=== PATIENT | male | born 1955 | race Caucasian/White ===

== ENCOUNTER 2019-06-05 14:22 | Inpatient (IN) | payer OTHER, SELFPAY ==
[2019-05-26 15:00] VITALS: BP 150/85; PULSE 67; RESP 18; TEMP 37.2; O2SAT 99; BMI 29.9
[2019-06-05] VITALS (15 sets, daily range): BP systolic 117–150; BP diastolic 68–92; PULSE 67–83; RESP 16–21; TEMP 36.4–36.7; O2SAT 95–100
--- NOTE | 2019-06-05 06:52 | WPDANESEPPF ---
Anes - Initial Pre Proc Eval Procedure: Operation Date: 06/05/19 07:30 Proposed Procedures p Laparoscopic Colostomy Takedown With Possible Splenic Flexure, Low Anterior Anastomosis - Abhilash Rodríguez MD Date/Time: 06/05/19 06:52 Surgeon: Abhilash Rodríguez MD Pre Op Diagnosis: Diverticulitis Unspecified Site W/O Perforation Patient Data Age: 63 Gender: M Height: 1.63 m Weight: 79.2 kg Last Vital Signs Temp 37.2 C 05/26/19 15:00 Pulse 67 05/26/19 15:00 Resp 18 05/26/19 15:00 BP 150/85 H 05/26/19 15:00 Pulse Ox 99 05/26/19 15:00 Allergies Allergy/AdvReac Type Severity Reaction Status Date / Time No Known Allergies Allergy Unknown Uncoded 05/28/19 08:43 Home Medications Medication Instructions Recorded Confirmed Type atenolol 100 mg PO DAILY 05/26/19 05/26/19 History hydrochlorothiazide 25 mg PO DAILY 05/26/19 05/26/19 History lisinopril 40 mg PO DAILY 05/26/19 05/26/19 History potassium chloride 20 mEq See Rx Instructions PO BID #20 05/29/19 Rx tablet,extended release tablet erythromycin 500 mg tablet 1 gm PO .1PM, 2PM, 11PM #6 tablet 06/04/19 Rx neomycin 500 mg tablet 1 gm PO .1pm, 2 pm, 11 pm #6 tablet 06/04/19 Rx Patient hx anesthesia problems: none Family hx anesthesia problems: none PMFSH Past Medical History Medical History (Updated 06/05/19 @ 06:53 by Jagdish Dumont DO) History of heart attack States silent in 2018 seen on EKG - had stress test after which was negative Hypertension Surgical History Surgical History (Updated 06/04/19 @ 08:04 by Jagdish Dumont DO) History of colectomy sigmoid colectomy with colostomy 02/2019 History of tonsillectomy Social History Social History Smoking status: Never smoker Gender identity (if verbalized by the patient): Male Anes - Eval Final PreProcedure Day of Procedure 06/05/19 06:52 Patient weight: obese Heart: regular rate and rhythm Lungs: clear to auscultation and normal air movement Airway: Mallampati scale class II Neurological: alert and oriented Last oral intake: >/= 8 hours ASA classification: III Emergent: no Anesthetic plan: proceed Anesthesia type and monitoring: general ETT and standard monitoring Informed Consent: The patient's anesthetic plan and its attendant risks and benefits were discussed with the patient/family/POA. Questions were solicited and answers provided to the satisfaction of the patient/family/POA.
[2019-06-05] MEDS: LACTATED RINGERS 1,000 ML 30 ML IV CONT ×2 (07:00→12:24)
[2019-06-05] MEDS: ALVIMOPAN 12 MG CAPSULE PO ×2 (07:15→21:38)
--- NOTE | 2019-06-05 07:21 | WPDHPUPDATE1 ---
History and Physical Update Update Date/Time: 06/05/19 07:21 History and Physical has been reviewed, including an updated exam of the patient. There are NO changes in the patient's condition. Risks, benefits, and alternatives of a takedown of his left sided colostomy have been discussed and questions answered. Patient agrees to proceed with procedure.
[2019-06-05] MEDS: ceFAZolin 2 GM/D5W 50 ML 2 GM/50 ML BAG IVPB (07:37)
[2019-06-05] MEDS: metroNIDAZOLE 500 MG/ISO 100ML 500 MG/100 ML BAG 100 MG IVPB ×3 (07:45→22:38)
[2019-06-05] MEDS: BUPIVACAINE/EPINEPHRINE 0.5% 30 ML VIAL INFILTRATE (08:29)
--- NOTE | 2019-06-05 12:34 | PM.PROC ---
Procedure Note - Detailed Date of procedure: 06/07/19 Pre-op diagnosis: Diverticulitis Unspecified Site W/O Perforation 1. History of Tori's procedure, current left-sided ostomy 2. History of perforated diverticulitis with abscess February 2019. Post-op diagnosis: same Procedure performed: 1. Laparoscopic takedown of left-sided colostomy 2. Anastomosis of the distal descending colon to rectum. Description of procedure: The patient was seen in the preop area and marked near his ostomy. Following this the patient was taken to the operating room and placed on the operating table supine. After induction of adequate general oral endotracheal anesthesia he was placed into the low Gil stirrups. A Aragon catheter was placed. An OG tube was placed. The ostomy bag was removed and using instruments that were not part of our later surgical count I carefully sutured his ostomy closed including a little bit of the skin at the edge above and below it, also catching themucosa and muscle wall of the stoma, with a running 2 0 silk suture. Prior to prepping a rectal irrigation was performed 1st using a 500cc bag of saline and then secondarily using a bag 500 cc of Saline mixed with Betadine. a Malenkott catheter was left in the rectum. Following this the abdomen was prepped and draped with chlorhexidine and the pelvic area with Betadine. . After a careful prep and drape exposing the entire abdomen we carefully started by making a vertical incision near the left and upper portion of the umbilicus about 2.5 cm in vertical length and carried this down through the subcutaneous tissues and incised the underlying midline fascia. With careful technique we placed 2 stay sutures in the fascia on either side of midline and used these to tent up the abdominal wall as I continued to dissect gently directly down and to the right side. When it appeared that we were within peritoneal cavity a Barragan cannula was carefully slid into position and before putting up the balloon we insufflated CO2 gas. On this 1st attempt pressures were too high and did not appear that we were in the abdomen, but rather in front of the anterior rectus sheath on this side just above umbilicus. Therefore, I went back removed the cannula, and incised the posterior rectus sheath and the peritoneum and slid the cannula into the peritoneal cavity, this time seen peritoneal lining and we then carefully insufflated the balloon on the cannula and then insufflated CO2 gas. The abdomen started to insufflate well to create a pneumoperitoneum and pressures were appropriate on the insufflation machine. I then carefully placed a 0 degree 10 mm scope through this opening and we could see into the abdomen in the right upper quadrant. There were some filmy adhesions but nothing terrible. A 5 mm trocar was then placed under direct vision in standard fashion after making a small incision about even with the umbilicus in the far lateral right side of the abdomen. Local anesthetic was instilled and then under direct vision a 5 mm port was placed. Following this we switched the laparoscope to a 5 mm 0 degree scope and the laparoscopic was placed through the 5 mm port. I then carefully inspected the underside of the site where we entered the abdomen at the level of the umbilicus and it appeared that there was no injury to surrounding structures. There were some adhesions on the left side of the port but none on the right. We then used this site to inspect underneath the midline incision site in the suprapubic region and it appeared this was also clear so local anesthetic was instilled in the old midline scar just above the pubic bone and a vertical incision about 5 mm in size was placed and then a 5 mm port was also placed in the suprapubic midline. This was done under direct vision with laparoscope. Following this we used these two 5 mm ports and moving the laparoscope back and forth between them, dissected down all the filmy a
[2019-06-05] MEDS: LACTATED RINGERS 1,000 ML 100 ML IV CONT (16:04)
[2019-06-05] MEDS: GABAPENTIN 300 MG CAPSULE 600 MG PO (16:07)
--- NOTE | 2019-06-05 20:38 | PC.NURSE ---
Patient arrived from our floor @1450 today from PACU.
[2019-06-05] MEDS: FAMOTIDINE 20 MG/2 ML VIAL IV PUSH (21:38)
[2019-06-06] VITALS (8 sets, daily range): BP systolic 145–167; BP diastolic 78–102; PULSE 71–94; RESP 16–20; TEMP 36.3–37.1; O2SAT 94–98
[2019-06-06] MEDS: LACTATED RINGERS 1,000 ML 100 ML IV CONT (01:38)
[2019-06-06 06:10] LABS: Basophils Percent Auto 0.1 % (0.2-1.2); Hematocrit 41.1 % (42.0-52.0); Hemoglobin 13.6 g/dL (14.0-18.0); Immature Granulocyte Absolute 0.05 K/mm3 (0.00-0.031); Immature Granulocyte Percent A 0.4 % (0-0.5); Lymphocytes Absolute Auto 0.81 K/mm3 (0.9-3.2); Lymphocytes Percent Auto 6.4 % (18.3-44.2); Mean Corpuscular HGB Conc 33.1 g/dl (32-36); Mean Corpuscular Hemoglobin 28.3 pg (26-34); Mean Corpuscular Volume 85.6 fl (80-100); Mean Platelet Volume 10.1 fl (7.4-10.4); Monocytes Absolute Auto 0.8 K/mm3 (0.1-0.6); Monocytes Percent Auto 6.2 % (2.6-8.5); Neutrophils Absolute Auto 10.9 K/mm3 (1.3-6.7); Neutrophils Percent Auto 86.9 % (45.5-73.1); Platelet Count Result 277 k/mm3 (150-375); White Blood Count 12.6 K/mm3 (4.5-10.0)
[2019-06-06 06:27] LABS: Alanine Aminotransferase 15 U/L (4-50); Albumin Level 3.6 g/dL (3.5-5.1); Alkaline Phosphatase 73 U/L (38-126); Aspartate Amino Transferase 21 U/L (17-59); Bilirubin,Total 1.1 mg/dL (0.2-1.3); Blood Urea Nitrogen 20 mg/dL (9-20); Calcium 8.5 mg/dL (8.4-10.2); Carbon Dioxide 26 mmol/L (22-30); Chloride 103 mmol/L (98-107); Estimated CRCL calculation 55 ml/min; Estimated Glomerular Filt Rate > 60; Glucose 117 mg/dL (75-110); Potassium 3.9 mmol/L (3.4-5.0); Sodium 137 mmol/L (137-145)
[2019-06-06] MEDS: metroNIDAZOLE 500 MG/ISO 100ML 500 MG/100 ML BAG 100 MG IVPB ×3 (06:41→21:45)
[2019-06-06] MEDS: atenoloL 50 MG TABLET 100 MG PO (09:49)
[2019-06-06] MEDS: lisinopriL 20 MG TABLET 40 MG PO (09:49)
[2019-06-06] MEDS: ENOXAPARIN 40 MG/0.4 ML SYRINGE SUB-Q (09:50)
[2019-06-06] MEDS: ALVIMOPAN 12 MG CAPSULE PO ×2 (09:50→21:45)
[2019-06-06] MEDS: FAMOTIDINE 20 MG/2 ML VIAL IV PUSH (09:50)
--- NOTE | 2019-06-06 12:14 | PM.PNGS ---
Progress Note: A&P Assessment and Plan (1) Colostomy status: Onset Date: ~02/2019 Code(s): Z93.3 - Colostomy status Status: Acute Assessment and Plan: Doing well postop day 1 with positive flatus Advance diet to clear liquids for now and give nurses capability to advance to full liquids if patient has a bowel movement. Patient will begin walking further in the hallway. May be ready for discharge later this weekend. (2) Diverticulitis: Onset Date: ~02/2019 Code(s): K57.92 - Diverticulitis of intestine, part unspecified, without perforation or abscess without bleeding Status: Acute Additional Plan Patient tolerating fluids well. Will saline lock IV after this bag. Subjective Subjective Date/Time Seen: 06/06/19 12:14 Post Op day: 1 Patient reports: no new complaints, flatus and no bowel movement Interval history: Patient up walking, feeling well, tolerating liquids. Patient states he had had a bowel movement yet but has passed gas several times. Review of Systems Constitutional: Constitutional: Reports no additional constitutional complaints ENT: Reports other (Mucous Membranes moist.) Cardiovascular: Cardiovascular: Denies dyspnea Respiratory: Respiratory: Denies pain on inspiration and Denies dyspnea Musculoskeletal: Musculoskeletal: Reports other (No calf swelling or edema) Integumentary/Breasts: Skin/Breast: Reports system reviewed and no additional complaints, except as docu Exam Const: General: cooperative, no acute distress, alert and awake Orientation/consciousness: patient oriented x3 HENMT: Mouth: Yes moist mucous membranes Neck: Neck: normal visual inspection Chest: Chest palpation & inspection: normal inspection of the chest Resp: Effort & Inspection: normal respiratory effort Auscultation: clear to auscultation bilaterally Cardio: Jugular venous distension: no JVD Rate: regular rate Rhythm: regular rhythm GI: Auscultation: normal bowel sounds Rectal Exam: deferred Skin: Other: Incision at old ostomy site has 4 x 4 and Tegaderm on it with no drainage but was changed at 6:30 a.m. this morning. All laparoscopic sites clean with surgical glue and healing well apparently had mild serosanguineous drainage then. VARUN drain site with minimal drainage covered with a 4 x 4 and Tegaderm. Neuro: General: patient oriented x3 and moves all extremities Speech: normal speech Extrem: General: normal exam except as noted Psych: Mental Status: mental status grossly normal Speech and movement: Normal speech and movement present Affect: normal affect Thought content: Yes Normal thought content present Objective Data Vital Signs Vital Signs: Vital Signs - 24 hr 06/05/19 12:24 06/05/19 12:30 06/05/19 12:45 Temperature 36.7 C Pulse Rate 75 71 75 Respiratory Rate 18 20 20 Blood Pressure 127/70 119/68 123/73 Pulse Oximetry 100 100 100 06/05/19 13:00 06/05/19 13:15 06/05/19 13:30 Temperature Pulse Rate 72 67 82 Respiratory Rate 21 H 19 17 Blood Pressure 128/79 125/76 117/84 Pulse Oximetry 100 97 96 06/05/19 13:45 06/05/19 14:00 06/05/19 14:15 Temperature Pulse Rate 74 74 82 Respiratory Rate 19 19 17 Blood Pressure 132/85 132/88 134/91 H Pulse Oximetry 95 95 97 06/05/19 14:25 06/05/19 14:40 06/05/19 15:10 Temperature 36.6 C 36.4 C 36.4 C L Pulse Rate 80 77 74 Respiratory Rate 16 16 16 Blood Pressure 136/81 136/81 132/83 Pulse Oximetry 96 96 96 06/05/19 16:10 06/05/19 22:00 06/06/19 02:00 Temperature 36.5 C 36.6 C 37.1 C Pulse Rate 80 83 88 Respiratory Rate 16 16 16 Blood Pressure 150/86 H 139/88 145/89 H Pulse Oximetry 96 96 96 06/06/19 06:00 06/06/19 09:49 06/06/19 11:02 Temperature 36.7 C 36.3 C L Pulse Rate 90 90 94 Respiratory Rate 18 18 Blood Pressure 166/98 H 162/95 H Pulse Oximetry 97 98 Intake/Output Intake/Output: Intake & Output 06/03/19 06/04/19 06/05/19 06/06/19 23:59 23:59 23:59 23:59 In
[2019-06-06] MEDS: hydrALAZINE HCL 20 MG/ML VIAL 10 MG IV PUSH (15:36)
[2019-06-06] MEDS: hydroCHLOROthiazide 25 MG TABLET PO (17:33)
[2019-06-07] MEDS: metroNIDAZOLE 500 MG/ISO 100ML 500 MG/100 ML BAG 100 MG IVPB ×2 (06:43→21:05)
[2019-06-07 06:46] VITALS: BP 161/91; PULSE 73; RESP 16; TEMP 36.4; O2SAT 97
[2019-06-07 06:53] LABS: Blood Urea Nitrogen 17 mg/dL (9-20); Calcium 8.7 mg/dL (8.4-10.2); Carbon Dioxide 28 mmol/L (22-30); Chloride 99 mmol/L (98-107); Estimated CRCL calculation 54 ml/min; Estimated Glomerular Filt Rate > 60; Glucose 100 mg/dL (75-110); Potassium 3.5 mmol/L (3.4-5.0); Sodium 135 mmol/L (137-145)
[2019-06-07 08:00] VITALS: PULSE 73; RESP 16; O2SAT 97
[2019-06-07] MEDS: lisinopriL 20 MG TABLET 40 MG PO (08:07)
[2019-06-07] MEDS: ENOXAPARIN 40 MG/0.4 ML SYRINGE SUB-Q (08:07)
[2019-06-07] MEDS: ALVIMOPAN 12 MG CAPSULE PO ×2 (08:08→21:05)
[2019-06-07] MEDS: atenoloL 50 MG TABLET 100 MG PO (08:08)
--- NOTE | 2019-06-07 13:34 | PM.PNGS ---
Progress Note: A&P Assessment and Plan (1) Colostomy status: Onset Date: ~02/2019 Code(s): Z93.3 - Colostomy status Status: Acute Assessment and Plan: tolerating full liquid diet. Will advance to soft diet. VARUN drain out today. Possibly home tomorrow. Subjective Subjective Date/Time Seen: 06/07/19 13:34 Patient reports: feels better, pain is less, tolerating liquids well, flatus, bowel movement and afebrile Interval history: Patient has had a bowel movement. Eager to be able to try solid diet. No other complaints period Exam GI: Inspection: non-distended and incision ( clean, dry, intact) GI Palp: Yes Tenderness to palpation present (GI) ( incisional) Percussion: Yes normal to percussion Auscultation: normal bowel sounds Objective Data Vital Signs Vital Signs: Vital Signs - 24 hr 06/06/19 14:00 06/06/19 15:57 06/06/19 17:13 Temperature 36.4 C Pulse Rate 71 Respiratory Rate 18 Blood Pressure 167/102 H 165/78 H Pulse Oximetry 94 94 06/06/19 22:00 06/07/19 06:46 06/07/19 08:00 Temperature 36.7 C 36.4 C Pulse Rate 81 73 73 Respiratory Rate 20 16 16 Blood Pressure 146/92 H 161/91 H Pulse Oximetry 95 97 97 Intake/Output Intake/Output: Intake & Output 06/04/19 06/05/19 06/06/19 06/07/19 23:59 23:59 23:59 23:59 Intake Total 1930 3710 1060 Output Total 380 3075 3000 Balance 1550 245 -1940 Meds/Results Medications: Active Medications Generic Name Dose Route Start Last Admin Trade Name Freq PRN Reason Stop Dose Admin Acetaminophen 500 mg 06/05/19 14:22 Tylenol Tablet PO Q6H PRN Mild Pain (1-3) or Fever Hydrocodone Bitart/Acetaminophen 1 tab 06/05/19 14:22 [place] 5-325 Mg PO Q6H PRN Pain Rated 4-6 Hydrocodone Bitart/Acetaminophen 1 tab 06/05/19 14:22 06/06/19 01:33 [place] 7.5-325 Mg PO 1 tab Q6H PRN Administration Pain Rated 7-10 Alvimopan 12 mg 06/05/19 21:00 06/07/19 08:08 Entereg PO 06/12/19 21:01 12 mg Q12HR HUNTER Administration Atenolol 100 mg 06/06/19 09:00 06/07/19 08:08 Tenormin PO 100 mg DAILY HUNTER Administration Enoxaparin Sodium 40 mg 06/06/19 09:00 06/07/19 08:07 Lovenox SUB-Q 40 mg DAILY HUNTER Administration Hydrochlorothiazide 25 mg 06/06/19 18:00 06/06/19 17:33 Hydrochlorothiazide PO 25 mg QPM HUNTER Administration Metronidazole 500 mg in 100 mls @ 100 mls/hr 06/05/19 16:00 06/07/19 06:43 Flagyl 500 Mg/Iso Soln 100 Ml IVPB 100 mls/hr Q8HR HUNTER Administration Lisinopril 40 mg 06/06/19 09:00 06/07/19 08:07 Prinivil PO 40 mg DAILY HUNTER Administration Morphine Sulfate 2 mg 06/05/19 14:22 Morphine Sulfate Inj IV PUSH Q2H PRN Pain Rated 4-6 Morphine Sulfate 4 mg 06/05/19 14:22 Morphine Sulfate Inj IV PUSH Q2H PRN Pain Rated 7-10 Naloxone HCl 0.1 mg 06/05/19 14:22 Narcan IV PUSH Q2M PRN Opiate Reversal Ondansetron HCl 4 mg 06/05/19 14:22 Zofran Inj IV PUSH Q4H PRN Nausea And Vomiting Labs Labs: Laboratory Results - last 24 hr 06/07/19 06:11 Sodium 135 L Potassium 3.5 Chloride 99 Carbon Dioxide 28 BUN 17 Creatinine 1.20 Estim Creat Clear Calc 54 Estimated GFR > 60 Glucose 100 Calcium 8.7
[2019-06-07 14:00] VITALS: BP 156/98; PULSE 57; RESP 20; TEMP 36.5; O2SAT 97
[2019-06-07] MEDS: hydroCHLOROthiazide 25 MG TABLET PO (18:00)
[2019-06-07 21:44] VITALS: BP 164/94; PULSE 60; RESP 16; TEMP 37.1; O2SAT 97
[2019-06-08 05:38] VITALS: BP 180/98
[2019-06-08 06:00] VITALS: BP 181/99; PULSE 54; RESP 18; TEMP 36.6; O2SAT 96
[2019-06-08 06:16] LABS: Hematocrit 44.8 % (42.0-52.0); Hemoglobin 14.8 g/dL (14.0-18.0); Mean Corpuscular Hemoglobin 28.5 pg (26-34); Mean Corpuscular Volume 86.3 fl (80-100); Mean Platelet Volume 9.7 fl (7.4-10.4); Platelet Count Result 267 k/mm3 (150-375); Red Blood Count 5.19 M/mm3 (4.6-6.20); Red Cell Distribution Width 12.9 % (11.5-14.5); White Blood Count 10.8 K/mm3 (4.5-10.0)
[2019-06-08] MEDS: hydrALAZINE HCL 20 MG/ML VIAL 10 MG IV PUSH (06:29)
[2019-06-08] MEDS: metroNIDAZOLE 500 MG/ISO 100ML 500 MG/100 ML BAG 100 MG IVPB ×3 (06:29→21:12)
[2019-06-08 06:39] LABS: Blood Urea Nitrogen 17 mg/dL (9-20); Calcium 8.7 mg/dL (8.4-10.2); Carbon Dioxide 28 mmol/L (22-30); Chloride 97 mmol/L (98-107); Estimated CRCL calculation 53 ml/min; Estimated Glomerular Filt Rate > 60; Glucose 108 mg/dL (75-110); Potassium 3.3 mmol/L (3.4-5.0); Sodium 135 mmol/L (137-145)
[2019-06-08 08:00] VITALS: PULSE 54; RESP 18; O2SAT 96
[2019-06-08] MEDS: lisinopriL 20 MG TABLET 40 MG PO (09:44)
[2019-06-08] MEDS: ENOXAPARIN 40 MG/0.4 ML SYRINGE SUB-Q (09:45)
[2019-06-08] MEDS: atenoloL 50 MG TABLET 100 MG PO (09:45)
[2019-06-08] MEDS: ALVIMOPAN 12 MG CAPSULE PO ×2 (09:46→21:12)
--- NOTE | 2019-06-08 13:00 | ECG_ITS ---
Measurements Intervals [place] Rate: 66 P: 29 [place]: 146 QRS: 7 QRSD: 95 T: -45 QT: 408 QTc: 430 Interpretive Statements SINUS RHYTHM POSSIBLE LEFT ATRIAL ENLARGEMENT DELAYED PRECORDIAL R/S TRANSITION POSSIBLE LEFT VENTRICULAR HYPERTROPHY CONSIDER INFERIOR INFARCT, AGE INDETERMINATE BORDERLINE T WAVE ABNORMALITY- LATERAL LEADS ABNORMAL ECG Electronically Signed On 06-08-2019 13:36:47 TECHNICIAN ASSISTANT by Brian Llamas D.O.
--- NOTE | 2019-06-08 13:02 | PM.PNGS ---
Progress Note: A&P Assessment and Plan (1) Colostomy status: Onset Date: ~02/2019 Code(s): Z93.3 - Colostomy status Status: Acute Assessment and Plan: Patient doing well surgically. Tolerating a soft diet. Continue daily dressing changes. (2) Anxiety: Code(s): F41.9 - Anxiety disorder, unspecified Status: Acute Assessment and Plan: Patient has not tried any prior medications in the past. Will give patient Xanax as needed here in the hospital. Will likely keep patient overnight 1 more day due to high blood pressure and anxiety. (3) Chest pressure: Code(s): R07.89 - Other chest pain Status: Acute Assessment and Plan: Check EKG today to ensure there is no cardiac cause for his symptoms (4) Hypertension: Code(s): I10 - Essential (primary) hypertension Status: Acute Assessment and Plan: Blood pressure has been higher than normal, and patient is back on all of his home meds. Added hydralazine p.r.n. systolic blood pressure greater than 160 Subjective Subjective Date/Time Seen: 06/08/19 13:02 Pain controlled. Tolerating soft diet. Patient has been experiencing chest pressure and anxiety. He does not think this is related to his heart and thinks it is most likely anxiety. He states that he has been depressed for the last couple months. He has some concerns about going home today with how he is currently feeling. Exam GI: Inspection: non-distended and incision (Dry and intact.) GI Palp: Yes Soft to palpation and Yes Tenderness to palpation present (GI) (Incisional) Percussion: Yes normal to percussion Auscultation: normal bowel sounds Objective Data Vital Signs Vital Signs: Vital Signs - 24 hr 06/07/19 14:00 06/07/19 21:44 06/08/19 05:38 Temperature 36.5 C 37.1 C Pulse Rate 57 L 60 Respiratory Rate 20 16 Blood Pressure 156/98 H 164/94 H 180/98 H Pulse Oximetry 97 97 06/08/19 06:00 Temperature 36.6 C Pulse Rate 54 L Respiratory Rate 18 Blood Pressure 181/99 H Pulse Oximetry 96 Intake/Output Intake/Output: Intake & Output 06/05/19 06/06/19 06/07/19 06/08/19 23:59 23:59 23:59 23:59 Intake Total 1930 3710 2900 740 Output Total 901 1866 7826 550 Balance 1554 798 -0080 190 Meds/Results Medications: Active Medications Generic Name Dose Route Start Last Admin Trade Name Freq PRN Reason Stop Dose Admin Acetaminophen 500 mg 06/05/19 14:22 Tylenol Tablet PO Q6H PRN Mild Pain (1-3) or Fever Hydrocodone Bitart/Acetaminophen 1 tab 06/05/19 14:22 [place] 5-325 Mg PO Q6H PRN Pain Rated 4-6 Hydrocodone Bitart/Acetaminophen 1 tab 06/05/19 14:22 06/07/19 22:26 [place] 7.5-325 Mg PO 1 tab Q6H PRN Administration Pain Rated 7-10 Alprazolam 0.25 mg 06/08/19 13:00 Xanax PO TID PRN Anxiety Alvimopan 12 mg 06/05/19 21:00 06/08/19 09:46 Entereg PO 06/12/19 21:01 12 mg Q12HR HUNTER Administration Atenolol 100 mg 06/06/19 09:00 06/08/19 09:45 Tenormin PO 100 mg DAILY HUNTER Administration Enoxaparin Sodium 40 mg 06/06/19 09:00 06/08/19 09:45 Lovenox SUB-Q 40 mg DAILY HUNTER Administration Hydralazine HCl 10 mg 06/08/19 05:54 06/08/19 06:29 Apresoline Hcl Inj IV PUSH 10 mg Q6H PRN Administration Blood Pressure >160 Hydrochlorothiazide 25 mg 06/06/19 18:00 06/07/19 18:00 Hydrochlorothiazide PO 25 mg QPM HUNTER Administration Metronidazole 500 mg in 100 mls @ 100 mls/hr 06/05/19 16:00 06/08/19 07:53 Flagyl 500 Mg/Iso Soln 100 Ml IVPB Infused Q8HR HUNTER Infusion Lisinopril 40 mg 06/06/19 09:00 06/08/19 09:44 Prinivil PO 40 mg DAILY HUNTER Administration Morphine Sulfate 2 mg 06/05/19 14:22 Morphine Sulfate Inj IV PUSH Q2H PRN Pain Rated 4-6 Morphine Sulfate 4 mg 06/05/19 14:22 Morphine Sulfate Inj IV PUSH Q2H PRN Pain Rated 7-10 Naloxone HCl 0.1 mg
[2019-06-08 14:00] VITALS: BP 159/100; PULSE 66; RESP 18; TEMP 36.6; O2SAT 98
[2019-06-08] MEDS: hydroCHLOROthiazide 25 MG TABLET PO (17:30)
[2019-06-08] MEDS: ALPRAZOLAM 0.25 MG TABLET PO (18:56)
[2019-06-08 21:24] VITALS: BP 158/94; PULSE 72; RESP 18; TEMP 36.9; O2SAT 97
[2019-06-09] MEDS: metroNIDAZOLE 500 MG/ISO 100ML 500 MG/100 ML BAG 100 MG IVPB (05:05)
[2019-06-09 05:23] VITALS: BP 152/94; PULSE 65; RESP 16; TEMP 37.1; O2SAT 95
[2019-06-09 09:10] VITALS: PULSE 80
[2019-06-09] MEDS: atenoloL 50 MG TABLET 100 MG PO (09:10)
[2019-06-09] MEDS: lisinopriL 20 MG TABLET 40 MG PO (09:10)
[2019-06-09] MEDS: ENOXAPARIN 40 MG/0.4 ML SYRINGE SUB-Q (09:10)
[2019-06-09] MEDS: ALVIMOPAN 12 MG CAPSULE PO (09:10)
[2019-06-09 12:54] VITALS: BP 150/99
[2019-06-09 14:00] VITALS: BP 149/98; PULSE 62; RESP 20; TEMP 36.7; O2SAT 100
--- NOTE | 2019-06-09 15:19 | PM.DS ---
DS: Diagnosis Admitting Diagnosis Admitting Diagnosis: Essential (primary) hypertension Discharge Diagnosis (1) Status post colostomy takedown: Code(s): Z98.890 - Other specified postprocedural states Status: Acute (2) Hypertension: Code(s): I10 - Essential (primary) hypertension Status: Acute (3) Diverticulitis: Onset Date: ~02/2019 Code(s): K57.92 - Diverticulitis of intestine, part unspecified, without perforation or abscess without bleeding Status: Acute Assessment and Plan: History of perforated sigmoid diverticulitis with abscess with hospitalization on 02/09/19 and eventual surgery on 02/11/19. (4) Anxiety: Code(s): F41.9 - Anxiety disorder, unspecified Status: Acute (5) Hypokalemia: Code(s): E87.6 - Hypokalemia Status: Acute DS: Summary Hospital Course Reason for hospitalization: Man York is a 63-year-old male who initially was seen by our service on 02/09/19 when he was admitted to [facility] for perforated sigmoid diverticulitis. The patient was initially treated with IV antibiotics. He developed a peridiverticular abscess and did not progress as expected. He eventually had a sigmoid colectomy with end descending colostomy (Tori's procedure) on 02/11/[address] Rodríguez. Following this surgery, he recovered well, completed antibiotic treatment, and was discharged home. He was followed as an outpatient by Dr. Rodríguez and options were discussed about proceeding with a takedown of his colostomy. They had agreed to proceed with elective surgery and he was scheduled for this on 06/05/19 and he was admitted following surgery for monitoring and post-op management. Hospital Course: The patient underwent elective laparoscopic takedown of left-sided colostomy with anastomosis of the distal descending colon to rectum on 06/05/[address] Rodríguez. No immediate complications and the patient was transferred to the medical unit once recovered in PACU. The patient was slowly advanced on a diet and tolerated this well. He has been advanced to a soft diet and his bowel function has returned. He was restarted on his home medications once he was tolerating a diet. He has a known history of essential hypertension but did experience some post-operative hypertension even on his home medications. This could be related to multiple factors, including the hospital environment, anxiety, and pain. The patient's pain has improved and he is now tolerating his pain with only Tylenol as needed. We added PRN IV Hydralazine while inpatient and he did receive this. He is already on lisinopril 40 mg daily, HCTZ 25 mg daily, and atenolol 100 mg daily. His blood pressure has improved as of today and he has not required any IV Hydralazine since yesterday morning. That being said, his blood pressure is still on the high side and he was encouraged to follow-up with his PCP this week to re-evaluate his medications and for a blood pressure check. He does also report having a social change with a relationship that is having significant troubles and this is what has been causing his anxiety. He denies a history of anxiety or ever taking medications in the past. He was treated with Xanax 0.25 mg by mouth TID as needed while in the hospital. Yesterday when he was experiencing anxiety, he also had an episode of chest pain. EKG was obtained and had no acute changes. After his anxiety was treated, his chest pain subsided. This was likely due to the anxiety. Today, he denies any chest pain, chest pressure, shortness of breath, or dizziness. Today's labs revealed mild hypokalemia with a potassium of 3.3. He was instructed to start taking his potassium supplement which he has at home once daily, starting today. BMP was ordered to be done one day prior to follow-up with his PCP once he has that appointment scheduled. Further instructions for the hypokalemia and need for potassium supplementation will be deferred to his PCP once h
== END 2019-06-09 14:40 | disposition home or self-care (01) | DRG 331 ==
LOC: ANH3MEDSUR 14:42
PROVIDERS: Surgery; Admitting Provider Surgery; Visit Provider Surgery
PROC: 0D1E4Z4 Bypass Large Intestine to Cutaneous, Percutaneous Endoscopic Approach (ICD-10-PCS; principal; 2019-06-05 07:30)
DX: Z43.3 Encounter for attention to colostomy (principal); F41.9 Anxiety disorder, unspecified; E87.6 Hypokalemia
CPT/HCPCS: 36415; 80048; 80053; 85025; 85027; 88304; 88307; 93005; A9270; C1729; J0131; J0360; J0690; J1100; J1170; J1650; J2250; J2405; J2704; J2710; J3010; J7030; J7120